=== PATIENT | female | born 1985 | race African-American/Black ===

== ENCOUNTER 2021-03-19 11:45 | Emergency (ER) | payer OTHER ==
[~2021-03-19] VITALS: Ht 162.6 cm; Wt 83.9 kg
[2021-03-19] MEDS ORDERED: TOPAMAX100 MG PO (12:32)
[2021-03-19 12:49] LABS: ABSOLUTE NEUTROPHILS 2.2 thou/uL (1.4-8.2); BASOPHILS 0.8 % (0.0-2.0); EOSINOPHILS 1.2 % (0.0-3.0); HEMATOCRIT 39.8 % (37.0-47.0); HEMOGLOBIN 13.4 gm/dL (12.0-15.0); LYMPHOCYTES 28.2 % (24.0-44.0); MCH 31.7 pg (26.0-34.0); MCHC 33.7 g/dL (28.0-37.0); MCV 94.2 fL (80.0-100.0); MONOCYTES 12.3 % (1.0-8.0); PLATELET COUNT 279 thou/uL (150-400); POLYS 57.5 % (36.0-66.0); RBC 4.23 mil/uL (4.20-5.00); RDW 13.3 % (10.5-14.5); WBC 3.8 thou/uL (4.0-11.0)
[2021-03-19 13:10] LABS: CALCIUM 9.3 mg/dL (8.5-10.1); CREATININE 0.8 mg/dL (0.6-1.0); POTASSIUM 3.9 mmol/L (3.5-5.1)
[2021-03-19 13:16] LABS: TOTAL BILIRUBIN 0.1 mg/dL (0.2-1.0); TOTAL PROTEIN 7.8 g/dL (6.4-8.2)
[2021-03-19 14:24] LABS: URINE BILIRUBIN NEGATIVE (Negative); URINE BLOOD NEGATIVE (Negative); URINE CLARITY CLEAR; URINE COLOR YELLOW; URINE GLUCOSE-RANDOM* NEGATIVE (Negative); URINE KETONES NEGATIVE (Negative); URINE LEUKOCYTES-REFLEX NEGATIVE (Negative); URINE NITRITE-REFLEX NEGATIVE (Negative); URINE PROTEIN (DIPSTICK) NEGATIVE (Negative); URINE UROBILINOGEN 0.2 E.U./dl (0.2-1.0)
[2021-03-19] MEDS ORDERED: ZANAFLEX4 MG PO (14:59)
[2021-03-19 15:00] VITALS: BP 110/69
== END 2021-03-19 16:40 | disposition home or self-care (01) ==
LOC: ER 11:45 → EDSEX 11:45 → ER 16:40
PROVIDERS: Nurse Practitioner
DX: R51.9 Headache, unspecified (principal); M54.2 Cervicalgia; Z90.710 Acquired absence of both cervix and uterus; Z98.890 Other specified postprocedural states; Z79.899 Other long term (current) drug therapy; Z88.8 Allergy status to other drugs, medicaments and biological substances

== ENCOUNTER 2021-07-11 17:21 | Emergency (ER) | payer OTHER ==
[~2021-07-11] VITALS: Ht 162.6 cm; Wt 81.7 kg
[~2021-07-11 17:21] MED LIST: TOPAMAX100 MG PO; ZANAFLEX4 MG PO
[2021-07-11] MEDS ORDERED: NAPROXEN500 MG PO (17:29)
[2021-07-11 18:07] LABS: ANION GAP 9 mmol/L (7-16); BUN 8 mg/dL (7-18); CALCIUM 10.1 mg/dL (8.5-10.1); CHLORIDE 105 mmol/L (98-107); CO2 26 mmol/L (21-32); CREATININE 0.7 mg/dL (0.6-1.0); GLUCOSE 106 mg/dL (74-106); POTASSIUM 3.4 mmol/L (3.5-5.1); SODIUM 140 mmol/L (136-145)
[2021-07-11 18:08] LABS: HEMATOCRIT 40.4 % (37.0-47.0); HEMOGLOBIN 13.7 gm/dL (12.0-15.0); MCH 31.4 pg (26.0-34.0); MCHC 33.9 g/dL (28.0-37.0); MCV 92.5 fL (80.0-100.0); RBC 4.37 mil/uL (4.20-5.00); RDW 13.3 % (10.5-14.5); WBC 7.5 thou/uL (4.0-11.0)
[2021-07-11 18:18] LABS: ALBUMIN 4.3 g/dL (3.4-5.0); LIPASE 80 U/L (73-393); MAGNESIUM 2.1 mg/dL (1.8-2.4); SGOT 15 U/L (15-37); SGPT 25 U/L (14-59); TOTAL BILIRUBIN 0.3 mg/dL (0.2-1.0); TOTAL PROTEIN 7.7 g/dL (6.4-8.2)
[2021-07-11 19:14] LABS: URINE BILIRUBIN NEGATIVE (Negative); URINE BLOOD NEGATIVE (Negative); URINE CLARITY CLEAR; URINE COLOR YELLOW; URINE GLUCOSE-RANDOM* NEGATIVE (Negative); URINE KETONES NEGATIVE (Negative); URINE LEUKOCYTES-REFLEX NEGATIVE (Negative); URINE NITRITE-REFLEX NEGATIVE (Negative); URINE PROTEIN (DIPSTICK) NEGATIVE (Negative); URINE UROBILINOGEN 0.2 E.U./dl (0.2-1.0)
[2021-07-11] MEDS ORDERED: BENTYL 10 MG CA10 M1 PO (19:55)
[2021-07-12 00:01] VITALS: BP 134/75
--- NOTE | 2021-07-12 09:13 | EKG ---
[place] [address] [facility] [place] [address] ELECTROCARDIOGRAM REPORT Name: KEAGAN EVANS Room #: [facility] EDWAR Gaona#: [id number] Admission: 07/11/21 Attend Phys: Discharge: 07/11/21 Date of : 89 Report #: [id number] [facility] ED Test Date: 2021-07-11 Test Time: 17:27:03 Pat Name: KEAGAN EVANS Department: Room: Gender: Psychology Teacher: DAHLIA : 1985 Requested By: Camilla Smith Order Number: [id number] MD: Gamal Melgar Measurements Intervals [place] Rate: 92 P: 54 PA: 132 QRS: 41 QRSD: 75 T: 9 QT: 327 QTc: 405 Interpretive Statements Sinus rhythm Normal tracing No previous ECG available for comparison Electronically Signed On 07-12-2021 9:12:46 TOOL MARKER by Gamal Melgar [email or web address] <ELECTRONICALLY SIGNED> By: Gamal Melgar MD, [facility] 07/12/2112 1727 1727 Gamal Melgar MD, FACC /EPI
== END 2021-07-11 20:30 | disposition home or self-care (01) ==
LOC: ER 17:21
PROVIDERS: Student in an Organized Health Care Education/Training Program
DX: R07.89 Other chest pain (principal); R10.11 Right upper quadrant pain; R10.31 Right lower quadrant pain; F17.200 Nicotine dependence, unspecified, uncomplicated; Z90.710 Acquired absence of both cervix and uterus; Z98.890 Other specified postprocedural states; Z90.89 Acquired absence of other organs; Z79.899 Other long term (current) drug therapy; Z88.8 Allergy status to other drugs, medicaments and biological substances